=== PATIENT | female | born 1995 | race African-American/Black ===

== ENCOUNTER 2019-05-31 16:21 | Emergency (ER) | payer BC, SELFPAY ==
[2019-05-31 16:38] VITALS: BP 142/86; PULSE 98; TEMP 39.1
--- NOTE | 2019-05-31 16:49 | ED.GENADULT ---
HPI - General Adult General Chief complaint: Upper Respiratory Infection Stated complaint: ST Time Seen by Provider: 05/31/19 16:24 Source: patient Mode of arrival: ambulatory Limitations: no limitations History of Present Illness HPI narrative: Patient is a 23-year-old female who presents with just over 24 hours duration of congestion rhinorrhea fever chills body aches and nonproductive cough patient has not taken anything for her symptoms presents noting generalized aches and pains patient denies any vomiting diarrhea Review of Systems Review of Systems: Narrative: CONSTITUTIONAL: Positive for fever, chills, and sweats. EYES: Denies redness, or discharge. ENT: Positive for rhinorrhea, congestion, sore throat, and otalgia. CARDIOVASCULAR: Denies chest pain RESPIRATORY: Denies dyspnea. GASTROINTESTINAL: Denies abdominal pain, nausea, vomiting, or diarrhea. SKIN: Denies rash or itching. MUSCULOSKELETAL: Denies back pain NEUROLOGIC: Denies dizziness, or weakness. [facility] Social History Social History (Updated 05/31/19 @ 16:51 by Patrick Garcia PA-C) Smoking status: Never smoker Gender identity (if verbalized by the patient): Female Exam Narrative: Exam Narrative: GENERAL: Well-appearing, well-nourished, and in no acute distress. HEAD: Normocephalic, atraumatic. EYES: PERRLA and EOMI. ENT: Nares clear, no rhinorrhea or epistaxis. Mucous membranes moist. Oropharynx without tonsillar hypertrophy exudate or other lesions. Bilateral TMs pearly escobar nonbulging NECK: Supple. No adenopathy or masses. No carotid bruits or JVD CHEST: Clear to auscultation. No respiratory distress. No wheezes rales or rhonchi HEART: Regular rate and rhythm. No murmur heard. EXTREMITIES: Normal range of motion. No edema. SKIN: Warm, dry, no rash. NEURO: No focal deficits. Alert and oriented x3. Cranial nerves II through XII grossly intact PSYCH: Normal mood and affect. Course Course Emergency Course: Patient in the room in no distress aware of case findings treatment plan and diagnosis agreeing to follow-up as directed or to return if symptoms worsen or concerns Vital Signs Vital signs: Vital Signs Temperature 102.3 F H 05/31/19 16:38 Pulse Rate 98 05/31/19 16:38 Blood Pressure 142/86 H 05/31/19 16:38 Temperature 102.3 F H 05/31/19 16:38 Pulse Rate 98 05/31/19 16:38 Blood Pressure 142/86 H 05/31/19 16:38 Medical Decision Making MDM Narrative Medical decision making narrative: Patient in the room aware of case findings treatment plan and diagnosis agreeing to follow-up as directed and provided with reasons to return Vital Signs Vital Signs: Vital Signs Temperature 102.3 F H 05/31/19 16:38 Pulse Rate 98 05/31/19 16:38 Blood Pressure 142/86 H 05/31/19 16:38 Temperature 102.3 F H 05/31/19 16:38 Pulse Rate 98 05/31/19 16:38 Blood Pressure 142/86 H 05/31/19 16:38 Lab Data Labs: Influenza A Screen Negative Reference Range: Negative Influenza B Screen Positive Reference Range: Negative Discharge Plan Discharge Clinical Impression: Influenza Patient Disposition: Home, Self-Care Condition: Stable Instructions: Antibiotic Form Additional Instructions: Follow up with your primary care provider within 5-7 days. Go to ER for shortness of breath, difficulty breathing, chest pain, fever/chills, weakness, nauseau/vomitting, etc. or any other concerns. Stay well-hydrated Take any prescribed medications as directed. Follow patient education sheets If you do not have a drug allergy to tylenol or motrin and can tolerate it then take tylenol or motrin as needed for discomfort/pain. Prescriptions: New fluticasone propionate [Flonase Allergy Relief] 50 mcg/actuation spray,suspension 2 spray NASAL ONCE Qty: 9.9 RF: 0 ibuprofen [IBU] 600 mg tablet 600 mg PO TID PRN (Reason: fever or pain) Qty: 10 RF: 0 oseltamivir [Tamiflu] 7
[2019-05-31] MEDS: ACETAMINOPHEN 500 MG TABLET 1000 MG PO (16:53)
[2019-05-31] MEDS: IBUPROFEN 600 MG TABLET PO (16:53)
== END 2019-05-31 17:11 | disposition home or self-care (01) ==
PROVIDERS: Emergency Provider Emergency Medicine
DX: J10.1 Influenza due to other identified influenza virus with other respiratory manifestations (principal)
CPT/HCPCS: 87804; 99283; A9270